=== PATIENT | male | born 1950 ===

== ENCOUNTER → 2020-11-22 07:26 | Outpatient (CLI) | payer OTHER | END | disposition home or self-care (01) | LOC: LAB 07:26 | PROVIDERS: ATTEND Family Medicine | DX: Z20.828 Contact with and (suspected) exposure to other viral communicable diseases (principal) ==

== ENCOUNTER → 2020-11-22 | Outpatient (CLI) | payer OTHER | END | disposition home or self-care (01) | LOC: ASH CLINIC 07:35 | PROVIDERS: ATTEND Family Medicine | DX: Z23 Encounter for immunization (principal); U07.1 COVID-19 ==

== ENCOUNTER 2021-04-16 13:39 | Outpatient (CLI) | payer OTHER | END 2021-04-16 13:43 | disposition home or self-care (01) | LOC: RAD 13:39 | PROVIDERS: ATTEND Family Medicine | DX: R06.00 Dyspnea, unspecified (principal) ==

== ENCOUNTER 2021-04-29 11:23 | Inpatient (IN) | payer OTHER ==
[~2021-04-29] VITALS: Ht 167.6 cm; Wt 97.5 kg
[2021-04-29] MEDS ORDERED: AVALIDE 300-121 EACH PO (11:50)
[2021-04-29] MEDS ORDERED: NORVASC10 MG PO (11:50)
--- NOTE | 2021-04-29 11:51 | NUR ---
SE RECIBE PTE ALERTA, ORIENTADO EN KALLIE MIHIR ESFERAS. PTE REFIERE DIFICULTAD RESPIRATORIA. SE LE REALIZA EKG A PTE Y SE CONECTA A MONITOR CARDIACO.
[2021-04-29] MEDS ORDERED: XANAX1 MG PO (12:09)
--- NOTE | 2021-04-29 12:37 | NUR ---
SE RECIBE PACIENTE MASCULINO, REFIERE DIFICULTAD A RESPIRAR, SE REALIZA EKG, SE CONECTA A MONITOR CARDIACO. SE MIDE S/V. SE EXTRAE MUESTRAS DE LABORATORIO Y SE CANALIZA EN BRAZO DERECHO, UTILIZANDO MEDIDAS ASEPTICAS. PERSONAL DE TERAPIA RESPIRATORIA REALIZA ABG'S. PACIENTE NO REFIERE DOLOR AL MOMENTO. SE MANTIENE BAJO OBSERVACION POR CAMBIOS.
--- NOTE | 2021-04-29 16:01 | NUR ---
SE RECIBE PTE MASCULINO ALERTA Y ORIENTADO X3,CONECTADO A MONITOPR CARDIACO ABIMAEL Y OXIMETRIA CONTINUA,SE REALIZAN S/V,SE NOTIFICA A SOBRE FO2(78),PTE REFIERE ESTA ES GRUBER SATURACION NORMAL DE OXIGENO,SE ORIENTA A PTE ÁNGEL FUE CONSULTADO CON INTERNISTA,SE MANTIENE A PTE EN OBSERVACION ABIMAEL POR CAMBIOS.
[2021-04-30] MEDS ORDERED: STIOLTO RESPIMAT4 GM (09:21)
[2021-04-30] MEDS ORDERED: ROSUVASTATIN CA10 MG (09:21)
[2021-04-30] MEDS ORDERED: ALPRAZOLAM0.5 MG (09:21)
[2021-05-08] MEDS ORDERED: MEDROLPACK PO (12:03)
[2021-05-08] MEDS ORDERED: ISOSORBIDE DINIT5 MG PO (12:03)
[2021-05-08] MEDS ORDERED: XOPENEX0.63 MG/3 IH (12:03)
[2021-05-08] MEDS ORDERED: HYDRALAZINE HCL25 MG PO (12:03)
== END 2021-05-08 18:47 | disposition home or self-care (01) | DRG 190 ==
LOC: ER 11:23 → MEDI 19:33
PROVIDERS: ADMIT Internal Medicine; ATTEND Internal Medicine
PROC: 3E0F7SF Introduction of Other Gas into Respiratory Tract, Via Natural or Artificial Opening (ICD-10-PCS; principal; 2021-04-29)
PROC: 3E0F73Z Introduction of Anti-inflammatory into Respiratory Tract, Via Natural or Artificial Opening (ICD-10-PCS; 2021-04-29)
PROC: B24BYZZ Ultrasonography of Heart with Aorta using Other Contrast (ICD-10-PCS; 2021-04-30)
PROC: BW24ZZZ Computerized Tomography (CT Scan) of Chest and Abdomen (ICD-10-PCS; 2021-04-30)
PROC: BW2410Z Computerized Tomography (CT Scan) of Chest and Abdomen using Low Osmolar Contrast, Unenhanced and Enhanced (ICD-10-PCS; 2021-05-01)
DX: J44.1 Chronic obstructive pulmonary disease with (acute) exacerbation (principal); I26.09 Other pulmonary embolism with acute cor pulmonale; I27.21 Secondary pulmonary arterial hypertension; I11.0 Hypertensive heart disease with heart failure; I50.810 Right heart failure, unspecified; R09.02 Hypoxemia; R06.02 Shortness of breath; R60.0 Localized edema; I50.89 Other heart failure; Z20.822 Contact with and (suspected) exposure to COVID-19
CPT/HCPCS: 71275

== ENCOUNTER → 2021-07-16 08:00 | Outpatient (CLI) | payer OTHER ==
[~2021-07-16 08:00] MED LIST: ALPRAZOLAM0.5 MG; AVALIDE 300-121 EACH PO; HYDRALAZINE HCL25 MG PO; ISOSORBIDE DINIT5 MG PO; MEDROLPACK PO; NORVASC10 MG PO; ROSUVASTATIN CA10 MG; STIOLTO RESPIMAT4 GM; XANAX1 MG PO; XOPENEX0.63 MG/3 IH
== END | disposition home or self-care (01) ==
LOC: ASH CLINIC 06-16 08:00 → PPH VACUNA 08:00
PROVIDERS: ATTEND Emergency Medicine Pediatric Emergency Medicine
DX: Z23 Encounter for immunization (principal)

== ENCOUNTER 2022-02-27 15:26 | Emergency (ER) | payer OTHER ==
[~2022-02-27] VITALS: Ht 167.6 cm; Wt 92.1 kg
[2022-02-27] MEDS ORDERED: XANAX0.25 MG (16:02)
[2022-02-27] MEDS ORDERED: HYDRALAZIN20 MG/1 ML (16:02)
[2022-02-27] MEDS ORDERED: ISOSORBIDE DINIT5 MG (16:02)
[2022-02-27] MEDS ORDERED: CRESTOR5 MG (16:02)
== END 2022-02-27 21:46 | disposition home or self-care (01) ==
LOC: ER 15:26
DX: D53.9 Nutritional anemia, unspecified (principal)

== ENCOUNTER 2022-03-31 12:00 | Outpatient (CLI) | payer OTHER ==
[~2022-03-31 12:00] MED LIST changes: +CRESTOR5 MG; +HYDRALAZIN20 MG/1 ML; +ISOSORBIDE DINIT5 MG; +XANAX0.25 MG
== END 2022-03-31 12:30 | disposition home or self-care (01) ==
LOC: PPH VACUNA 12:00
PROVIDERS: ATTEND Emergency Medicine Pediatric Emergency Medicine
DX: Z23 Encounter for immunization (principal)

== ENCOUNTER 2022-10-29 13:25 | Outpatient (CLI) | payer OTHER | END 2022-10-29 13:35 | disposition home or self-care (01) | LOC: PPH VACUNA 13:25 | PROVIDERS: ATTEND Emergency Medicine Pediatric Emergency Medicine | DX: Z23 Encounter for immunization (principal) ==

== ENCOUNTER → 2022-10-29 | Outpatient (CLI) | payer OTHER | END | disposition home or self-care (01) | LOC: PPH VACUNA 15:22 | PROVIDERS: ATTEND Emergency Medicine Pediatric Emergency Medicine | DX: Z23 Encounter for immunization (principal) ==